=== PATIENT | female | born 1960 | race Caucasian/White ===

== ENCOUNTER → 2024-05-25 09:00 | Outpatient (REF) | payer BC, SELFPAY | LOC: RCS 09:00 | PROVIDERS: ATTENDING PHYSICIAN Student in an Organized Health Care Education/Training Program; FAMILY PHYSICIAN Family Medicine | DX: R94.31 Abnormal electrocardiogram [ECG] [EKG] (principal) | CPT/HCPCS: 93225; 93226 ==